=== PATIENT | male | born 1990 | race Caucasian/White ===

== ENCOUNTER 2023-01-11 11:25 | Outpatient (AMB) | payer OTHER, SELFPAY ==
--- NOTE | 2023-01-11 11:27 | A.OFFPC_ITS ---
Vital Signs 01/11/23 11:30 Height 5 ft 9 in Weight 482 lb 9.47 oz BMI 71.3 BP 124/70 Blood Pressure Location Lt brachial Position Sitting Respiration 18 Pulse 82 Pulse Source Pulse Oximeter Pulse Oximetry (%) 97 Oxygen Delivery Method Room Air Intake Visit Reasons: New patient-Back pain Intake Note: Patient is a new patient here to establish care LBP and Arthritis both hip, HTN and borderline diabetes. Transferring care from [facility] in [place], [place]. Medical records have been requested today. Pt is doing PT at [facility]/[place]. Database Security Expert Required: No Accompanied by: Self / Same As Patient Allergies No Known Allergies [No Known Allergies*] Allergy (Verified 01/11/23 11:50) Medication List - Last Reconciled 01/11/23 by Gregory Burgos PA-C lisinopril-hydrochlorothiazide 10-12.5 mg 1 tab PO DAILY meloxicam 15 mg PO DAILY Tobacco use date assessed: 01/11/23 Dental Screening Dental Screen Date: 01/11/23 Did you have a dental visit in the last 12 months?: Yes Did you have a dental problem in the last 6 months where you did not have access to dental care?: No Was dental information given to patient?: Patient has dentist HPI New patient-Back pain HPI Details Patient is a 32 year male here today for a new patient visit.. Previous PCP was in [facility]. He has a past medical history significant for morbid obesity, hypertension, BRENDON, bilateral hip osteoarthritis and chronic low back pain. .. Hypertension: Continues with lisinopril hydrochlorothiazide which has been able to manage his blood pressure quite well. He does report having history of obstructive sleep apnea though does not use a CPAP machine at night. He is interested in weight management reducing his weight to try to control his obstructive sleep apnea. Lumbar spine pain: Has had chronic lower lumbar spine pain to which he was dealing with with his previous PCP. Now on short-term disability from work as he is not able to go up and down ladders which requirement for his job.. Now going to [facility] for PT for his back which has been improving his back pain slowly. He does use NSAID on a p.r.n. basis for his pain. Has gotten x-rays of his hips and lower back and reports did fine arthritis in his hips. He continues to have some issues with mobility (going up and down stairs and getting into his truck) which causes some lower lumbar spine pain. He is interested in getting an MRI to evaluate for disc herniation. .. Obesity: He does understand his BMI is over 70 any he is 480 lb. He reports he has gained a lot more weight over the last 2 years due to being inactive secondary to being sick with COVID and having pneumonia and having his lower lumbar spine issue. Has tried Ozempic though felt ill with medication. He is interested starting with [place] weight management to help lose weight. [facility] Surgical History Hx of tonsillectomy Family History Mother No problems noted. Father Hypertension Diabetes mellitus Social History Housing: House Patient Tobacco Use Status: Never used Tobacco e-Cigarette/Vaping Use: Never Used service: No Current occupational status: employed and disabled Cognitive needs: No Hearing needs: No Vision needs: No Questionnaire PHQ-9 Over the last 2 weeks, how often have you been bothered by any of the following problems? 1. Little interest or pleasure in doing things: not at all 2. Feeling down, depressed, or hopeless: not at all 3. Trouble falling or staying asleep, or sleeping too much: not at all 4. Feeling tired or having little energy: not at all 5. Poor appetite or overeating: not at all 6. Feeling bad about yourself - or that you are a failure or have let yourself or your family down: not at all 7. Trouble concentrating on things, such as reading the newspaper or watching television: not at all 8. Moving or speaking so slowly that other people could have noticed. Or the opposite - being so fidgety or restless that you have been moving around a lot more than usual: not at all 9. Thoughts that you would be better off or of hurting yourself in some way: not at all Total score: 0 Depression Screening Interpretation: Negative Depression Screening Done: Yes 27202 - PHQ-9 Billing: Yes Source: Developed by Drs. Burt LPolly Hawkins Kurt Kroenke and colleagues, with an educational sharda from [employer]. Thrive Questionnaire Date Thrive assessed: 01/11/23 I am a: Patient What is your living situation today?: I have a steady place to live Within the past 12 months, did the food you bought not last and you didn't have the money to get more?: Never true Within the past 12 months, did you worry whether your food would run out before you got money to buy more?: Never true Do you have trouble paying for medicines?: No Do you have trouble getting transportation to medical appointments?: No Do you have trouble paying your heating and electricity bill?: No Do you have trouble taking care of your child, family member or friend?: No Do you have trouble with day-to-day activities such as bathing, preparing meals, shopping, managing finances, etc.?: No Are you currently unemployed and looking for a job?: No Are you interested in more education?: No Please select the resources that you would like help with: None Currently or been in a relationship where the following occur: no concerns reported AUDIT C Alcohol Use Questionnaire (AUDIT-C) 1. How often do you have a drink containing alcohol?: Monthly or less Total Score: 1 JAMIE-7 AMB Questionnaire JAMIE-7 Date JAMIE - 7 assessed: 01/11/23 Feeling nervous, anxious, or on edge: 0 = Not at all Not being able to stop or control worryin = Not at all Worrying too much about different things: 0 = Not at all Trouble relaxin = Not at all Being so restless that it is hard to sit still: 0 = Not at all Becoming easily annoyed or irritable: 0 = Not at all Feeling afraid as if something awful might happen: 0 = Not at all Total JAMIE-7 score (0-4 normal; 5-9 mild; 10-14 moderate; 15-21 severe): 0 Source: Developed by Drs. Burt Middleton, Johnathan Bagley and colleagues, with an educational sharda from [employer]. JAMIE-7 Assessment Billing JAMIE-7 Assessment Tool: JAMIE-7 Assessment 62797 Review of Systems Const Denies headache(s) Eyes Denies loss of vision ENT Denies vertigo, Denies dizziness, Denies headache(s) and Denies sore throat Card Denies chest pain, Denies leg edema and Denies lightheadedness Resp Denies cough, Denies hemoptysis and Denies wheezing GI Denies abdominal pain, Denies melena, Denies constipation, Denies diarrhea and Denies vomiting Denies dysuria, Denies urinary frequency and Denies urinary urgency Musc Denies arthralgias, Denies joint swelling, Denies numbness and Denies tingling Neuro Denies Abnormal speech present, Denies behavioral changes, Denies vertigo, Denies dizziness, Denies headache(s), Denies loss of vision, Denies memory loss, Denies numbness and Denies tingling Psych Denies anxiety, Denies behavioral changes, Denies depression, Denies memory loss and Denies panic attacks Jae/Lymph Denies easy bleeding and Denies easy bruising Aller/Immun Denies wheezing Physical exam (Primary Care) Vital Signs: Last Vital Signs Pulse 82 01/11/23 11:30 Resp 18 01/11/23 11:30 BP 124/70 01/11/23 11:30 Pulse Ox 97 01/11/23 11:30 Oxygen Delivery Method Room Air 01/11/23 11:30 BMI result Body Mass Index 71.3 BMI Assessment/Plan discussion: High Tobacco/Smoking Status: Tobacco use Status Tobacco use date assessed 01/11/23 01/11/23 11:41 Patient Tobacco Use Status Never used Tobacco 01/11/23 11:41 e-Cigarette/Vaping Use Never Used 01/11/23 11:41 PHQ-9: PHQ-9 Score PHQ-9: Total score 0 01/11/23 11:55 Depression Screening Interpretation: Negative Thrive Assessment: Date of Thrive Assessment Date Thrive assessed 01/11/23 01/11/23 11:41 Currently or been in a relationship where the following occur: no concerns reported Const Other: Morbidly obese General: healthy appearing, no acute distress, alert and awake Nutritional Appearance: well nourished Orientation/consciousness: oriented to person, oriented to place and oriented to time HENMT Ears: TM's normal bilaterally General nose exam: Normal nasal mucous membranes and turbinates present Eyes Conjunctivae: conjunctivae normal Sclerae: sclerae normal Pupils: Equal, round and reactive pupils present Neck Neck: Yes no lymphadenopathy and Yes no JVD Thyroid: Thyroid normal Carotids: no bruits Resp Effort & Inspection: normal respiratory effort and not tachypneic Auscultation: no crackles, no rales, no rhonchi and no wheezes Cardio Rate: regular rate Rhythm: regular rhythm Heart sounds: no murmurs and normal S1 and S2 GI Palpation (GI): Soft to palpation, nontender, no hepatomegaly and no sp lenomegaly Auscultation: normal bowel sounds Skin General skin exam: no rashes or lesions noted and dry skin Neuro General: oriented to person, oriented to place and oriented to time Cranial nerves: Yes Equal, round and reactive pupils present Speech: No Abnormal speech present Gait exam (Neuro): Normal gait present Motor exam (neuro): no tremor noted Extrem Right upper extremity: full ROM Left upper extremity: full ROM Right lower extremity: full ROM; no edema Left lower extremity: full ROM; no edema Psych Mental Status: mental status grossly normal Speech and movement: Normal speech and movement present Affect: normal affect Attitude: cooperative Thought process: Normal thought process present Assessment and Plan Assessment & Plan (1) Obesity: Code(s): E66.9 - Obesity, unspecified Qualifiers: Body mass index: BMI 70 or greater Obesity classification: adult class 3 (BMI >= 40) Obesity type: due to excess calories Serious obesity comorbidity presence: with serious comorbidity Qualified Code(s): E66.01 - Morbid (severe) obesity due to excess calories; Z68.45 - Body mass index [BMI] 70 or greater, adult Plan: Patient does understand his BMI is over 70 would like to start with the [place] weight management program. He will work on lifestyle modifications on reducing his poor eating habits and trying to increase his physical activity as much as he can tolerate. (2) HTN (hypertension): Code(s): I10 - Essential (primary) hypertension Qualifiers: Hypertension type: primary hypertension Qualified Code(s): I10 - Essential (primary) hypertension Plan: Patient's blood pressure acceptable today in office. Will continue his current dose of lisinopril with goal blood pressure to be below 140/90 (3) Lumbar spine pain: Code(s): M54.50 - Low back pain, unspecified Plan: Continues with lower lumbar spine pain that has slowly gotten better with physical therapy. He has been dealing with lower lumbar spine pain over the last 8 months. He still has lower lumbar spine pain when going up or down stairs or trying to get in and out of a truck. He is currently on short-term disability from work anticipates returning as long his his lumbar spine and hips get better. Due to his continued lumbar spine pain he is interested in getting an MRI to evaluate for disc herniation (4) Osteoarthritis, hip, bilateral: Code(s): M16.0 - Bilateral primary osteoarthritis of hip Qualifiers: Osteoarthritis type: primary Qualified Code(s): M16.0 - Bilateral primary osteoarthritis of hip Plan: Was found to have bilateral hip osteoarthritis. He has been working with physical therapy on this as well. (5) BRENDON (obstructive sleep apnea): Code(s): G47.33 - Obstructive sleep apnea (adult) (pediatric) Plan: He reports he does have obstructive sleep apnea though is not use a CPAP machine. He is somewhat willing to be re-evaluated with a sleep apnea test in near future. He would like to work on weight reduction (6) Lumbar radiculopathy: Code(s): M54.16 - Radiculopathy, lumbar region (7) Impaired glucose metabolism: Code(s): R73.09 - Other abnormal glucose Plan: He does report having history of borderline diabetes due to his weight. Will check an A1c and fasting blood sugar to assure within acceptable range. Orders: Orders Complete Blood Count no Diff Today I10 - Essential (primary) hypertension Microalbumin, Random (w Creat) Today I10 - Essential (primary) hypertension Comprehensive [place]. Panel Fast Today I10 - Essential (primary) hypertension MR lumbar spine wo con Today M54.16 - Radiculopathy, lumbar region, M54.50 - Low back pain, unspecified Hemoglobin A1c Today R73.09 - Other abnormal glucose Referrals Bariatric Surgery Referral E66.01 - Morbid (severe) obesity due to excess calories, Z68.45 - Body mass index [BMI] 70 or greater, adult Coding Level of Care Code New Pt Level 4 (02833) Diagnoses Class 3 severe obesity due to excess calories with serious comorbidity and body mass index (BMI) greater than or equal to 70 in adult E66.01; Z68.45 Body mass index: BMI 70 or greater Obesity classification: adult class 3 (BMI >= 40) Obesity type: due to excess calories Serious obesity comorbidity presence: with serious comorbidity Primary hypertension I10 Hypertension type: primary hypertension Lumbar spine pain M54.50 Primary osteoarthritis of both hips M16.0 Osteoarthritis type: primary BRENDON (obstructive sleep apnea) G47.33 Lumbar radiculopathy M54.16 Impaired glucose metabolism R73.09 Additional Codes JAMIE-7 Assessment Billing - JAMIE-7 Assessment Tool: JAMIE-7 Assessment [id number] ([id number])
[2023-01-11 11:30] VITALS: BP 124/70; PULSE 82; RESP 18; O2SAT 97; BMI 71.3
== END 2023-01-11 12:22 | disposition home or self-care (01) ==
PROVIDERS: PCP Hospitalist; Visit Provider Physician Assistant
DX: E66.01 Morbid (severe) obesity due to excess calories (principal); Z68.45 Body mass index [BMI] 70 or greater, adult; I10 Essential (primary) hypertension; M54.50 Low back pain, unspecified; M16.0 Bilateral primary osteoarthritis of hip; G47.33 Obstructive sleep apnea (adult) (pediatric); M54.16 Radiculopathy, lumbar region; R73.09 Other abnormal glucose
CPT/HCPCS: 99204

== ENCOUNTER 2023-01-26 09:10 | Outpatient (AMB) | payer OTHER, SELFPAY ==
[2023-01-26 09:23] VITALS: BP 126/86; O2SAT 97; BMI 71.8
--- NOTE | 2023-01-26 09:23 | A.OFFPC_ITS ---
Vital Signs 01/26/23 09:23 Height 5 ft 9 in Weight 486 lb 5.436 oz BMI 71.8 BP 126/86 Blood Pressure Location Lt brachial Position Sitting Pulse Oximetry (%) 97 Oxygen Delivery Method Room Air Intake Visit Reasons: 2 week f/u Bee Raiser Required: No Accompanied by: Self / Same As Patient Allergies No Known Allergies [No Known Allergies*] Allergy (Verified 01/26/23 09:50) Medication List - Last Reconciled 01/26/23 by Gregory Burgos PA-C lisinopril-hydrochlorothiazide 10-12.5 mg 1 tab PO DAILY Tobacco use date assessed: 01/11/23 Dental Screening Dental Screen Date: 01/26/23 Did you have a dental visit in the last 12 months?: Yes Did you have a dental problem in the last 6 months where you did not have access to dental care?: No Was dental information given to patient?: Patient has dentist HPI 2 week f/u HPI Details Patient is a 32 year male here today for a follow-up visit He has a past medical history significant for morbid obesity, hypertension, BRENDON, bilateral hip osteoarthritis and chronic low back pain. Concerned--> ports over last several weeks having intermittent episodes of her left upper chest discomfort that only last a few minutes. He reports he is able to tandem massage is away from when it does happen for he denies any shortness of breath or cough. .. Hypertension: Continues with lisinopril hydrochlorothiazide which has been able to manage his blood pressure quite well. He does report having history of obstructive sleep apnea though does not use a CPAP machine at night. He is interested in weight management reducing his weight to try to control his obstructive sleep apnea. Lumbar spine pain: Has had chronic lower lumbar spine pain to which he was dealing with with his previous PCP. Now on short-term disability from work as he is not able to go up and down ladders which requirement for his job.. Now going to [facility] for PT for his back which has been improving his back pain slowly. He does use NSAID on a p.r.n. basis for his pain. Has gotten x-rays of his hips and lower back and reports did fine arthritis in his hips. He continues to have some issues with mobility (going up and down stairs and getting into his truck) which causes some lower lumbar spine pain. He is interested in getting an MRI to evaluate for disc herniation. .. Obesity: He does understand his BMI is over 70 any he is 486 lb. He reports he has gained a lot more weight over the last 2 years due to being inactive secondary to being sick with COVID and having pneumonia and having his lower lumbar spine issue. Has tried Ozempic though felt ill with medication. He is interested starting with [place] weight management to help lose weight. [facility] Surgical History Hx of tonsillectomy Family History Mother No problems noted. Father Hypertension Diabetes mellitus Social History Housing: House Patient Tobacco Use Status: Never used Tobacco e-Cigarette/Vaping Use: Never Used service: No Current occupational status: employed and disabled Cognitive needs: No Hearing needs: No Vision needs: No Questionnaire Thrive Questionnaire Date Thrive assessed: 01/11/23 JAMIE-7 AMB Questionnaire JAMIE-7 Date JAMIE - 7 assessed: 01/11/23 Source: Developed by Drs. Burt Middleton, Polly Ward, Johnathan Rivera and colleagues, with an educational sharda from [employer]. Review of Systems Const Denies headache(s) Eyes Denies loss of vision ENT Denies vertigo, Denies dizziness, Denies headache(s) and Denies sore throat Card Denies chest pain, Denies leg edema and Denies lightheadedness Resp Denies cough, Denies hemoptysis and Denies wheezing GI Denies abdominal pain, Denies melena, Denies constipation, Denies diarrhea and Denies vomiting Denies dysuria, Denies urinary frequency and Denies urinary urgency Musc Denies arthralgias, Denies joint swelling, Denies numbness and Denies tingling Neuro Denies Abnormal speech present, Denies behavioral changes, Denies vertigo, Denies dizziness, Denies headache(s), Denies loss of vision, Denies memory loss, Denies numbness and Denies tingling Psych Denies anxiety, Denies behavioral changes, Denies depression, Denies memory loss and Denies panic attacks Jae/Lymph Denies easy bleeding and Denies easy bruising Aller/Immun Denies wheezing Physical exam (Primary Care) Vital Signs: Last Vital Signs BP 126/86 01/26/23 09:23 Pulse Ox 97 01/26/23 09:23 Oxygen Delivery Method Room Air 01/26/23 09:23 BMI result Body Mass Index 71.8 BMI Assessment/Plan discussion: High Tobacco/Smoking Status: Tobacco use Status Tobacco use date assessed 01/11/23 01/26/23 09:24 Patient Tobacco Use Status Never used Tobacco 01/26/23 09:24 e-Cigarette/Vaping Use Never Used 01/26/23 09:24 Thrive Assessment: Date of Thrive Assessment Date Thrive assessed 01/11/23 01/26/23 09:24 Const Other: Morbidly obese General: healthy appearing, no acute distress, alert and awake Nutritional Appearance: well nourished Orientation/consciousness: oriented to person, oriented to place and oriented to time HENMT Ears: TM's normal bilaterally General nose exam: Normal nasal mucous membranes and turbinates present Eyes Conjunctivae: conjunctivae normal Sclerae: sclerae normal Pupils: Equal, round and reactive pupils present Neck Neck: Yes no lymphadenopathy and Yes no JVD Thyroid: Thyroid normal Carotids: no bruits Resp Effort & Inspection: normal respiratory effort and not tachypneic Auscultation: no crackles, no rales, no rhonchi and no wheezes Cardio Rate: regular rate Rhythm: regular rhythm Heart sounds: no murmurs and normal S1 and S2 GI Palpation (GI): Soft to palpation, nontender, no hepatomegaly and no splenomegaly Auscultation: normal bowel sounds Skin General skin exam: no rashes or lesions noted and dry skin Neuro General: oriented to person, oriented to place and oriented to time Cranial nerves: Yes Equal, round and reactive pupils present Speech: No Abnormal speech present Gait exam (Neuro): Normal gait present Motor exam (neuro): no tremor noted Extrem Right upper extremity: full ROM Left upper extremity: full ROM Right lower extremity: full ROM; no edema Left lower extremity: full ROM; no edema Psych Mental Status: mental status grossly normal Speech and movement: Normal speech and movement present Affect: normal affect Attitude: cooperative Thought process: Normal thought process present Assessment and Plan Assessment & Plan (1) Obesity: Code(s): E66.9 - Obesity, unspecified Qualifiers: Body mass index: BMI 70 or greater Obesity classification: adult class 3 (BMI >= 40) Obesity type: due to excess calories Serious obesity comorbidity presence: with serious comorbidity Qualified Code(s): E66.01 - Morbid (severe) obesity due to excess calories; Z68.45 - Body mass index [BMI] 70 or greater, adult Plan: Patient does understand his BMI is over 70 would like to start with the [place] weight management program. He will work on lifestyle modifications on reducing his poor eating habits and trying to increase his physical activity as much as he can tolerate. (2) HTN (hypertension): Code(s): I10 - Essential (primary) hypertension Qualifiers: Hypertension type: primary hypertension Qualified Code(s): I10 - Essential (primary) hypertension Plan: Patient's blood pressure acceptable today in office. Will continue his current dose of lisinopril with goal blood pressure to be below 140/90 (3) Lumbar spine pain: Code(s): M54.50 - Low back pain, unspecified Plan: Continues with lower lumbar spine pain that has slowly gotten better with physical therapy. He has been dealing with lower lumbar spine pain over the last 8 months. He still has lower lumbar spine pain when going up or down stairs or trying to get in and out of a truck. He is currently on short-term disability from work anticipates returning as long his his lumbar spine and hips get better. Has an upcoming lumbar spine MRI (4) Osteoarthritis, hip, bilateral: Code(s): M16.0 - Bilateral primary osteoarthritis of hip Qualifiers: Osteoarthritis type: primary Qualified Code(s): M16.0 - Bilateral primary osteoarthritis of hip Plan: Was found to have bilateral hip osteoarthritis. He has been working with physical therapy on this as well. (5) BRENDON (obstructive sleep apnea): Code(s): G47.33 - Obstructive sleep apnea (adult) (pediatric) Plan: He reports he does have obstructive sleep apnea though is not use a CPAP machine. He is somewhat willing to be re-evaluated with a sleep apnea test in near future. He would like to work on weight reduction (6) Chest pain: Code(s): R07.9 - Chest pain, unspecified Qualifiers: Chest pain type: intercostal pain Qualified Code(s): R07.82 - Intercostal pain Plan: Reports intermittent episodes of left upper chest discomfort. Somewhat atypical for cardiac etiology though will check a EKG. Orders: Orders ECG 12 lead EKG 01/26/23 R07.82 - Intercostal pain XR chest 2V 01/26/23 R07.82 - Intercostal pain Troponin-I High Sensitivity 01/26/23 R07.82 - Intercostal pain Erythrocyte Sedimentation Rate 01/26/23 R07.82 - Intercostal pain Medications: Changed From lisinopril-hydrochlorothiazide 10-12.5 mg 1 tab PO DAILY I10 - Essential (primary) hypertension To lisinopril-hydrochlorothiazide 10-12.5 mg 1 tab PO DAILY 90 days 90 tabs 1RF I10 - Essential (primary) hypertension Coding Level of Care Code Est Pt Level 4 (39825) Diagnoses Class 3 severe obesity due to excess calories with serious comorbidity and body mass index (BMI) greater than or equal to 70 in adult E66.01; Z68.45 Body mass index: BMI 70 or greater Obesity classification: adult class 3 (BMI >= 40) Obesity type: due to excess calories Serious obesity comorbidity presence: with serious comorbidity Primary hypertension I10 Hypertension type: primary hypertension Lumbar spine pain M54.50 Primary osteoarthritis of both hips M16.0 Osteoarthritis type: primary BRENDON (obstructive sleep apnea) G47.33 Intercostal pain R07.82 Chest pain type: intercostal pain
== END 2023-01-26 10:19 | disposition home or self-care (01) ==
PROVIDERS: PCP Physician Assistant; Visit Provider Physician Assistant
DX: E66.01 Morbid (severe) obesity due to excess calories (principal); Z68.45 Body mass index [BMI] 70 or greater, adult; I10 Essential (primary) hypertension; M54.50 Low back pain, unspecified; M16.0 Bilateral primary osteoarthritis of hip; G47.33 Obstructive sleep apnea (adult) (pediatric); R07.82 Intercostal pain
CPT/HCPCS: 99214

== ENCOUNTER 2024-05-15 12:46 | Outpatient (AMB) | payer OTHER, SELFPAY ==
[2024-05-15 13:19] VITALS: BP 132/70; PULSE 78; TEMP 36.4; O2SAT 97; BMI 69.3
--- NOTE | 2024-05-15 13:19 | MHC.PC.OV ---
Vital Signs 05/15/24 13:19 Height 5 ft 9 in Weight 469 lb 5.826 oz BMI 69.3 BP 132/70 Blood Pressure Location Lt brachial Position Sitting Pulse 78 Pulse Source Pulse Oximeter Temp 97.5 F Temp Source Temporal Artery Scan Pulse Oximetry (%) 97 Oxygen Delivery Method [facility] Content Assistant Required: No Accompanied by: Self / Same As Patient Allergies No Known Allergies [No Known Allergies*] Allergy (Verified 05/15/24 13:32) Medication List - Last Reconciled 05/15/24 by Gregory Burgos PA-C lisinopril-hydrochlorothiazide 10-12.5 mg 1 tab PO DAILY 90 days Tobacco use date assessed: 05/15/24 Dental Screening Dental Screen Date: 05/15/24 Did you have a dental visit in the last 12 months?: No Did you have a dental problem in the last 6 months where you did not have access to dental care?: No Was dental information given to patient?: Patient has dentist HPI EDF [facility] 05/06 Chest pain HPI Details Patient is a 33-year-old male here today for an ER follow-up visit. Patient has a past medical history significant for obesity, hypertension, . Was seen at the [facility] ER for chest pain, EKG and troponins. Chest x-ray was normal. Attributed this chest pain to stress and anxiety. Currently patient's blood pressure acceptable. He continues with lisinopril hydrochlorothiazide with good effect on his blood pressure. He is very motivated to lose weight. Has lost 20 lb since his last office visit. He has been eating cleaner carpet and upholstery and has been a bit more active. He is not interested in weight loss medication or seeing a bariatric surgeon at this time. His goal is to get off of blood pressure medication. Obstructive sleep apnea: He does have obstructive sleep apnea and was told he did in his CPAP machine though he has been using a recliner chair that he sleeps in which has helped him sleep much better. Concern--> he also reports feeling that he has been since young child dealing with ADD disorder. He often has attention and focus issues that disrupt him from sometimes getting a task done. He is interested in getting evaluation for an ED. When asked not interested in starting any medication for ADD [facility] Surgical History Hx of tonsillectomy Family History Mother No problems noted. Father Hypertension Diabetes mellitus Social History Housing: House Patient Tobacco Use Status: Never used Tobacco e-Cigarette/Vaping Use: Never Used service: No Current occupational status: employed and disabled Cognitive needs: No Hearing needs: No Vision needs: No Questionnaire PHQ-9 Over the last 2 weeks, how often have you been bothered by any of the following problems? 1. Little interest or pleasure in doing things: not at all 2. Feeling down, depressed, or hopeless: not at all 3. Trouble falling or staying asleep, or sleeping too much: not at all 4. Feeling tired or having little energy: not at all 5. Poor appetite or overeating: not at all 6. Feeling bad about yourself - or that you are a failure or have let yourself or your family down: not at all 7. Trouble concentrating on things, such as reading the newspaper or watching television: not at all 8. Moving or speaking so slowly that other people could have noticed. Or the opposite - being so fidgety or restless that you have been moving around a lot more than usual: not at all 9. Thoughts that you would be better off or of hurting yourself in some way: not at all Total score: 0 Depression Screening Interpretation: Negative Depression Screening Done: Yes 45149 - PHQ-9 Billing: Yes Source: Developed by Drs. Burt Middleton, Polly Ward, Johnathan Rivera and colleagues, with an educational sharda from [employer]. Thrive Questionnaire Date Thrive assessed: 05/15/24 I am a: Patient What is your living situation today?: I have a steady place to live Within the past 12 months, did the food you bought not last and you didn't have the money to get more?: Never true Within the past 12 months, did you worry whether your food would run out before you got money to buy more?: Never true Do you have trouble paying for medicines?: No Do you have trouble getting transportation to medical appointments?: No Do you have trouble paying your heating and electricity bill?: No Do you have trouble taking care of your child, family member or friend?: No Do you have trouble with day-to-day activities such as bathing, preparing meals, shopping, managing finances, etc.?: No Are you currently unemployed and looking for a job?: No Are you interested in more education?: No Please select the resources that you would like help with: None Currently or been in a relationship where the following occur: No concerns reported THRIVE Score: 0 AUDIT C Alcohol Use Questionnaire (AUDIT-C) 1. How often do you have a drink containing alcohol?: Never 3. How often do you have six or more drinks on one occasion?: Never Total Score: 0 JAMIE-7 AMB Questionnaire JAMIE-7 Date JAMIE - 7 assessed: 05/15/24 Feeling nervous, anxious, or on edge: 0 = Not at all Not being able to stop or control worryin = Not at all Worrying too much about different things: 0 = Not at all Trouble relaxin = Not at all Being so restless that it is hard to sit still: 0 = Not at all Becoming easily annoyed or irritable: 0 = Not at all Feeling afraid as if something awful might happen: 0 = Not at all Total JAMIE-7 score (0-4 normal; 5-9 mild; 10-14 moderate; 15-21 severe): 0 Source: Developed by Drs. Burt Middleton, Polly Ward, Johnathan Rivera and colleagues, with an educational sharda from [employer]. JAMIE-7 Assessment Billing JAMIE-7 Assessment Tool: JAMIE-7 Assessment [id number] Review of Systems Const Denies headache(s) Eyes Denies loss of vision ENT Denies vertigo, Denies dizziness, Denies headache(s) and Denies sore throat Card Denies chest pain, Denies leg edema and Denies lightheadedness Resp Denies cough, Denies hemoptysis and Denies wheezing GI Denies abdominal pain, Denies melena, Denies constipation, Denies diarrhea and Denies vomiting Denies dysuria, Denies urinary frequency and Denies urinary urgency Musc Denies arthralgias, Denies joint swelling, Denies numbness and Denies tingling Neuro Denies Abnormal speech present, Denies behavioral changes, Denies vertigo, Denies dizziness, Denies headache(s), Denies loss of vision, Denies memory loss, Denies numbness and Denies tingling Psych Denies anxiety, Denies behavioral changes, Denies depression, Denies memory loss and Denies panic attacks Jae/Lymph Denies easy bleeding and Denies easy bruising Aller/Immun Denies wheezing Physical exam (Primary Care) Vital Signs: Last Vital Signs Temp 97.5 F 05/15/24 13:19 Pulse 78 05/15/24 13:19 BP 132/70 05/15/24 13:19 Pulse Ox 97 05/15/24 13:19 Oxygen Delivery Method Room Air 05/15/24 13:19 BMI result Body Mass Index 69.3 Tobacco/Smoking Status: Tobacco use Status Tobacco use date assessed 05/15/24 05/15/24 13:25 Patient Tobacco Use Status Never used Tobacco 05/15/24 13:24 e-Cigarette/Vaping Use Never Used 05/15/24 13:24 PHQ-9: PHQ-9 Score PHQ-9: Total score 0 05/15/24 13:24 Depression Screening Interpretation: Negative Thrive Assessment: Date of Thrive Assessment Date Thrive assessed 05/15/24 05/15/24 13:24 Currently or been in a relationship where the following occur: No concerns reported Const General: healthy appearing, no acute distress, alert and awake Nutritional Appearance: well nourished Orientation/consciousness: oriented to person, oriented to place and oriented to time HENMT Ears: TM's normal bilaterally General nose exam: Normal nasal mucous membranes and turbinates present Eyes Conjunctivae: conjunctivae normal Sclerae: sclerae normal Pupils: Equal, round and reactive pupils present Neck Neck: Yes no lymphadenopathy and Yes no JVD Thyroid: Thyroid normal Carotids: no bruits Resp Effort & Inspection: normal respiratory effort and not tachypneic Auscultation: no crackles, no rales, no rhonchi and no wheezes Cardio Rate: regular rate Rhythm: regular rhythm Heart sounds: no murmurs and normal S1 and S2 GI Palpation (GI): Soft to palpation, nontender, no hepatomegaly and no splenomegaly Auscultation: normal bowel sounds Skin General skin exam: no rashes or lesions noted and dry skin Neuro General: oriented to person, oriented to place and oriented to time Cranial nerves: Yes Equal, round and reactive pupils present Speech: No Abnormal speech present Gait exam (Neuro): Normal gait present Motor exam (neuro): no tremor noted Extrem Right upper extremity: full ROM Left upper extremity: full ROM Right lower extremity: full ROM; no edema Left lower extremity: full ROM; no edema Psych Mental Status: mental status grossly normal Speech and movement: Normal speech and movement present Affect: normal affect Attitude: cooperative Thought process: Normal thought process present Coding Level of Care Code Est Pt Level 4 (82486) Diagnoses Intercostal pain R07.82 Chest pain type: intercostal pain Primary hypertension I10 Hypertension type: primary hypertension Leukocytosis, unspecified type D72.829 Leukocytosis type: unspecified Attention or concentration deficit R41.840 Attention deficit type: attention or concentration deficit Additional Codes JAMIE-7 Assessment Billing - JAMIE-7 Assessment Tool: JAMIE-7 Assessment 92540 ([id number]) PHQ-9 - 23563 - PHQ-9 Billing: Yes ([id number]) Assessment & Plan Assessment & Plan (1) Chest pain: Code(s): R07.9 - Chest pain, unspecified Category: Medical Qualifiers: Chest pain type: intercostal pain Qualified Code(s): R07.82 - Intercostal pain Plan: Unclear etiology to patient's chest pain, likely stress and anxiety response. His chest pains have resolved. We discuss possibly doing Cornelio protocol stress test though will hold off on this for now and work extensively on lifestyle and weight reduction. He will continue on lisinopril hydrochlorothiazide for his blood pressure control. (2) HTN (hypertension): Code(s): I10 - Essential (primary) hypertension Category: Medical Qualifiers: Hypertension type: primary hypertension Qualified Code(s): I10 - Essential (primary) hypertension Plan: Patient's blood pressure acceptable today in office. Will continue current antihypertensive medication with goal blood pressure to remain below 140/90. Will give him paper script to do home blood pressure monitoring. He is interested in getting off blood pressure medication next few years as he is adamant about losing weight. (3) Leukocytosis: Code(s): D72.829 - Elevated white blood cell count, unspecified Category: Medical Qualifiers: Leukocytosis type: unspecified Qualified Code(s): D72.829 - Elevated white blood cell count, unspecified Plan: Have noted leukocytosis on most recent labs. Likely related to his weight in stress on his body. Will consider Hematology evaluation (4) ADD (attention deficit disorder): Code(s): F98.8 - Other specified behavioral and emotional disorders with onset usually occurring in childhood and adolescence Category: Medical Qualifiers: Attention deficit type: attention or concentration deficit Qualified Code(s): R41.840 - Attention and concentration deficit Plan: Patient having issues with his attention and focus on single task. He is interested in getting evaluation for ADD. Not interested in medication Orders: Orders Hemoglobin A1c Today R73.09 - Other abnormal glucose Comprehensive [place]. Panel Fast Today R73.09 - Other abnormal glucose Complete Blood Count no Diff Today D72.829 - Elevated white blood cell count, unspecified Referrals Psychiatry Outpatient Consultation Service R41.840 - Attention and concentration deficit Medications: New blood pressure monitor test blood pressure daily 1 ea 0RF I10 - Essential (primary) hypertension magnesium oxide 500 mg PO DAILY 90 days 90 caps 1RF I10 - Essential (primary) hypertension Refilled lisinopril-hydrochlorothiazide 10-12.5 mg 1 tab PO DAILY 90 days 90 tabs 1RF I10 - Essential (primary) hypertension
== END 2024-05-15 14:07 | disposition home or self-care (01) ==
PROVIDERS: PCP Physician Assistant; Visit Provider Physician Assistant
DX: R07.82 Intercostal pain (principal); I10 Essential (primary) hypertension; D72.829 Elevated white blood cell count, unspecified; R41.840 Attention and concentration deficit

== ENCOUNTER → 2024-05-15 12:46 | Outpatient (BNVA) | payer SELFPAY | PROVIDERS: PCP Physician Assistant; Visit Provider Physician Assistant | DX: R07.82 Intercostal pain (principal); I10 Essential (primary) hypertension; D72.829 Elevated white blood cell count, unspecified; R41.840 Attention and concentration deficit | CPT/HCPCS: 96127 ==

== ENCOUNTER 2024-06-02 09:09 | Outpatient (REF) | payer OTHER, SELFPAY ==
[2024-06-02 14:42] LABS: Influenza A PCR NEGATIVE (Negative); Influenza B PCR NEGATIVE (Negative); Resp Syncy Virus RNA Qual PCR NEGATIVE (Negative); SARS COV2 PCR INHOUSE POSITIVE (Negative)
== END 2024-06-02 09:10 | disposition home or self-care (01) ==
LOC: HO.LAB 09:09
PROVIDERS: Family Medicine; PCP Physician Assistant
DX: B34.9 Viral infection, unspecified (principal); R50.9 Fever, unspecified; Z20.822 Contact with and (suspected) exposure to COVID-19
CPT/HCPCS: 0241U; 87880

== ENCOUNTER 2024-06-02 09:09 | Outpatient (AMB) | payer OTHER, SELFPAY ==
[2024-06-02 09:20] VITALS: BP 124/80; PULSE 81; RESP 18; TEMP 36.5; O2SAT 98; BMI 68.7
--- NOTE | 2024-06-02 09:20 | AM.OFFWIN_ITS ---
Intake Vital Signs 06/02/24 09:20 Height 5 ft 9 in Weight 465 lb BMI 68.7 BP 124/80 Blood Pressure Location Lt radial Position Sitting Respiration 18 Pulse 81 Pulse Source Pulse Oximeter Temp 97.7 F Temp Source Oral Pulse Oximetry (%) 98 Oxygen Delivery Method Room Air Intake Visit Reasons: EP fever, sore throat Intake Note: Pt is here today c/o fever and sorethroat x4 days Patient Tobacco Use Status: Never used Tobacco Allergies No Known Allergies [No Known Allergies*] Allergy (Verified 06/02/24 09:26) HPI EP fever, sore throat 2 HPI Details Patient has had about 4 days of sore throat and fevers. Now getting significant nasal congestion and mild cough. No known sick contacts mild fatigue PFSH Surgical History Hx of tonsillectomy Family History Mother No problems noted. Father Hypertension Diabetes mellitus Social History Housing: House Patient Tobacco Use Status: Never used Tobacco e-Cigarette/Vaping Use: Never Used service: No Current occupational status: employed and disabled Cognitive needs: No Hearing needs: No Vision needs: No Review of Systems Const Details: see HPI Physical Exam Vital Signs: Last Vital Signs Temp 97.7 F 06/02/24 09:20 Pulse 81 06/02/24 09:20 Resp 18 06/02/24 09:20 BP 124/80 06/02/24 09:20 Pulse Ox 98 06/02/24 09:20 Oxygen Delivery Method Room Air 06/02/24 09:20 BMI result Body Mass Index 68.7 Const Other: appears mildly ill General: no acute distress and well developed Nutritional Appearance: well nourished Orientation/consciousness: patient oriented x3 HEENT Other: nasal congestion and facial flushing Head: Yes normocephalic and Yes atraumatic Eyes General: appearance normal, both eyes and all related structures Pupils: Equal, round and reactive pupils present EOM: EOMs intact bilaterally Resp Other: mildly coarse breath sounds throughout but no diminished breath sounds or other adventitious sounds Effort & Inspection: normal respiratory effort Auscultation: clear to auscultation bilaterally Cardio Rate: regular rate Rhythm: regular rhythm Heart sounds: S1 normal heart sound present, S2 normal heart sound present, no gallops, no murmurs and no rubs Neuro General: patient oriented x3 and gait normal Cranial nerves: Yes Equal, round and reactive pupils present Psych Affect: normal affect Results AMB Rapid Strep AMB Rapid Strep Negative Last Edit by Rosario Morrell CMA on 06/02/24 09:39 Results Reviewed Results Reviewed: Laboratory Last Values Strep Scn Rapid Clinic Negative 06/02/24 09:38 Assessment & Plan Assessment & Plan (1) Viral illness: Code(s): B34.9 - Viral infection, unspecified Plan: rapid strep negative likely viral illness. Nasal swab for COVID/ flu / RSV sent to the lab. Encouraged good hydration and plenty of rest. Patient works from home and does not need a work note. Call or return to office if worsening or not improving in a few days. Orders: Orders SARS-CoV2/FLU/RSV Today B34.9 - Viral infection, unspecified, Z20.822 - Contact with and (suspected) exposure to COVID-19 AMB Rapid Strep Screen Today Z13.9 - Encounter for screening, unspecified Coding Level of Care Code Est Pt Level 3 (56119) Diagnoses Viral illness B34.9
== END 2024-06-02 10:20 | disposition home or self-care (01) ==
PROVIDERS: PCP Physician Assistant; Visit Provider Family Medicine
DX: B34.9 Viral infection, unspecified (principal); Z13.9 Encounter for screening, unspecified

== ENCOUNTER 2024-06-26 09:40 | Outpatient (REF) | payer OTHER, SELFPAY ==
[2024-06-26 11:08] LABS: Hematocrit 41.7 % (42.0-52.0); Mean Corpuscular HGB Conc 33.6 g/dl (31.0-36.0); Mean Corpuscular Hemoglobin 28.5 pg (27.0-33.0); Mean Corpuscular Volume 84.8 fL (80.0-98.0); Mean Platelet Volume 9.3 fL (9.4-12.4); Platelet Count 283 X10*3/uL (160-400); Red Blood Count 4.92 X10*6/uL (4.60-5.80); White Blood Count 13.4 X10*3/uL (4.8-10.8)
[2024-06-26 11:18] LABS: Alanine Aminotransferase 21 U/L (0-40); Albumin Level 3.6 g/dL (3.5-5.0); Alkaline Phosphatase 68 U/L (39-117); Anion Gap 11 (12-20); Aspartate Amino Transferase 19 U/L (5-37); Bilirubin Total 0.3 mg/dL (0.0-1.0); Blood Urea Nitrogen 9 mg/dL (9-16); Calcium 9.2 mg/dL (8.4-10.2); Carbon Dioxide 25 mmol/L (22-29); Chloride 106 mmol/L (96-108); Estimated Glomerular Filt Rate > 60; Glucose Fasting 113 mg/dL (60-99); Potassium 3.8 mmol/L (3.3-5.1); Sodium 138 mmol/L (135-145); Total Protein 7.5 g/dL (6.5-8.0)
[2024-06-26 11:20] LABS: Estimated Average Glucose 126 mg/dL; Hemoglobin A1C 158.1659 umol/L; Total Hemoglobin (HGBA1C) 3713.6547 umol/L
== END 2024-06-26 09:41 | disposition home or self-care (01) ==
LOC: HO.LAB 09:40
PROVIDERS: PCP Physician Assistant; Visit Provider Physician Assistant
DX: R73.09 Other abnormal glucose (principal); D72.829 Elevated white blood cell count, unspecified
CPT/HCPCS: 36415; 80053; 83036; 85027

== ENCOUNTER 2024-12-06 10:33 | Outpatient (REF) | payer OTHER, SELFPAY ==
[2024-12-06 11:19] LABS: Hematocrit 41.9 % (42.0-52.0); Hemoglobin 14.4 g/dl (14.0-18.0); Mean Corpuscular HGB Conc 34.4 g/dl (31.0-36.0); Mean Corpuscular Hemoglobin 28.6 pg (27.0-33.0); Mean Corpuscular Volume 83.1 fL (80.0-98.0); NRBC Abs Auto 0.000 X10*3/uL (0.0-0.012); NRBC Pct Auto 0.0 /100WBC (0.0-0.2); Platelet Count 283 X10*3/uL (160-400); Red Blood Count 5.04 X10*6/uL (4.60-5.80); White Blood Count 16.2 X10*3/uL (4.8-10.8)
[2024-12-06 11:35] LABS: Hemoglobin A1C 185.8444 umol/L; Total Hemoglobin (HGBA1C) 3624.7621 umol/L
[2024-12-06 12:01] LABS: NT Pro B Type Natriuretic Pept < 15.8 pg/mL (<300); Troponin-I High Sensitivity < 2.7 ng/L (<3.5-35.0)
[2024-12-06 12:02] LABS: Alanine Aminotransferase 28 U/L (0-40); Albumin Level 4.0 g/dL (3.5-5.0); Alkaline Phosphatase 69 U/L (39-117); Anion Gap 13 (12-20); Aspartate Amino Transferase 24 U/L (5-37); Blood Urea Nitrogen 12 mg/dL (9-16); Calcium 9.1 mg/dL (8.4-10.2); Carbon Dioxide 26 mmol/L (22-29); Chloride 103 mmol/L (96-108); Estimated Glomerular Filt Rate > 60; Potassium 3.8 mmol/L (3.3-5.1); Sodium 138 mmol/L (135-145); Total Protein 8.0 g/dL (6.5-8.0)
[2024-12-06 12:28] LABS: Microalbum/Creatinine Ratio Ur 427.4 ug/mg cr (<30)
== END 2024-12-06 10:34 | disposition home or self-care (01) ==
LOC: HO.LAB 10:33
PROVIDERS: PCP Physician Assistant; Visit Provider Physician Assistant
DX: R73.09 Other abnormal glucose (principal); G47.33 Obstructive sleep apnea (adult) (pediatric); I10 Essential (primary) hypertension; R07.82 Intercostal pain
CPT/HCPCS: 36415; 80053; 82043; 82570; 83036; 83880; 84484; 85027

== ENCOUNTER 2024-12-20 14:49 | Outpatient (AMB) | payer OTHER, SELFPAY ==
--- OUTSIDE RECORDS SUMMARY | 2024-12-20 14:52 | XMS_ITS | Clinical Summary ---
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 01/09/2021 Active Family History Medical History Relation Comments Heart disease Father Heart disease Mother Relation Status Comments Father Mother Social History Tobacco Use Types Packs/Day Years Used Date Smoking Tobacco: Never Smokeless Tobacco: Never Alcohol Use Standard Drinks/Week Comments Never 0 (1 standard drink = 0.6 oz pur e alcohol) Education Answer Date Recorded Are you interested in more education? Not on shay e 07/10/2022 Are you concerned about learning? Not on file 07/10/2022 No 07/10/2022 No 07/10/2022 Digital Access Answer Date Recorded No 08/05/2022 No 08/05/2022 No 08/05/2022 Reliable internet access at home? Not on file 08/05/2022 Device with a working camera? Not on file Sex and Gender Information Value Date Recorded Sex Assigned at Not on file Legal Sex Male 3:05 PM EDT Gender Identity Not on file Sexual Orientation Not on file Last Filed Vital Signs Vital Sign Reading Time Taken Comments Blood Pressure - - Pulse - - Temperature - - Respiratory Rate - - Oxygen Saturation - - Inhaled Oxygen Concentration - - Weight 213.2 kg (470 lb) 04/09/2021 2:30 PM EST Height 175.3 cm (5' 9 ) 04/09/2021 2:30 PM EST Body Mass Index 69.41 04/09/2021 2:30 PM EST Plan of Treatment Health Maintenance Due Date Last Done Comments Adult Td,Tdap Booster 1988 CREATININE LEVEL 1988 POTASSIUM LEVEL 1988 DEPRESSION SCREENING 2000 HEPATITIS C SCREENING 2006 HIV ONE-TIME SCREENING (18-6 5 YEARS) 2006 INFLUENZA VACCINE (#1) 2024 COVID-19 VACCINE (1 - 2024-2 6 season) 2024 LIPID PANEL 11/14/2025 11/14/2020 SMOKING STATUS SCREENING (On ce After 26 Yrs) Completed 04/09/2021 HEPATITIS A VACCINES Aged Out No long er eligible based on patient's age to complete this topic HIB VACCINES Aged Out No longer eligi ble based on patient's age to complete this topic MENINGOCOCCAL VACCINES (ACWY) Aged Out No longer eligible based on patient's age to complete this topic MENINGOCOCCAL VACCINES (B) Aged Out N o longer eligible based on patient's age to complete this topic PNEUMOCOCCAL VACCINES (0-49 years) Aged Out No longer eligible based on patient's age to complete this topic Medical Devices Not on file [facility] [place] [id number] A[employer] O POS EPO [facility] POS [facility] POS E[facility] [place] [place] [id number] [facility] Care Teams Automatic [employer] Cutter Relationship Specialty Start Date End Date Yaron Mathur MD [address] [place] [id number] PCP - General Unknown Provider Specialty 04/06/21 Hasmukh Espana MD [address] [place] [address] [email or web address] Primary Oncologist Medical Oncology 04/23/21 Additional Source Comments The information contained in this document represents components of the legal health record. It is not the complete legal health record.[facility]
--- NOTE | 2024-12-20 14:54 | A.OFFPC_ITS ---
Vital Signs 12/20/24 14:56 Height 5 ft 9 in Weight 476 lb 10.23 oz BMI 70.4 BP 120/66 Blood Pressure Location Lt brachial Position Sitting Pulse 80 Pulse Source Pulse Oximeter Temp 97.1 F Temp Source Temporal Artery Scan Pulse Oximetry (%) 96 Oxygen Delivery Method Room Air Intake Visit Reasons: discuss lab results Intake Note: Patient is here to follow up on Lab results. Hardware Design Engineer Required: No Graphotype Operator: Not Required per policy Accompanied by: Self / Same As Patient Allergies amlodipine Allergy (Intermediate, Verified 12/20/24 15:06) swellling of legs Medication List - Last Reconciled 12/20/24 by Gregory Burgos PA-C blood pressure monitor test blood pressure daily lisinopril-hydrochlorothiazide 10-12.5 mg 1 tab PO DAILY 90 days magnesium oxide 500 mg PO DAILY 90 days Tobacco use date assessed: 12/20/24 Dental Screening Dental Screen Date: 05/15/24 HPI discuss lab results HPI Details Patient is a 33-year-old male here today for follow-up visit. Patient has a past medical history significant for class 3 obesity, hypertension, obstructive sleep apnea and type 2 diabetes Concern---> The patient has noticed the development of skin lesions, initially presenting as red blotches that have since darkened. He suspects a possible link to lisinopril, although the distribution of the lesions suggests otherwise. He has a history of acne and has previously been treated with doxycycline, which he found effective. .. Type 2 diabetes: New onset type 2 diabetes noted with A1c recently at 6 point 8. Patient does admit to very poor eating habits recently. He has been now over the last 2 weeks on a low sugar no carb diet and feels great. He is not interested in starting any antihyperglycemic medication at this time and will like to work on dietary and lifestyle management. Discuss perhaps using a GLP 1 to help him with weight loss and he is continuing. Hypertension: Today's blood pressure in office acceptable. He reports his blood pressures has been stable with only half dose of his lisinopril. He reports from taking full-dose he did not feel well. Thus currently only taking 5 mg lisinopril at this time with a good effect on his blood pressure. Obstructive sleep apnea: He does have obstructive sleep apnea and was told he did in his CPAP machine though he has been using a recliner chair that he sleeps in which has helped him sleep much better. PFSH Surgical History Hx of tonsillectomy Family History Mother No problems noted. Father Hypertension Diabetes mellitus Social History Housing: House Alcohol intake: never Patient Tobacco Use Status: Never used Tobacco e-Cigarette/Vaping Use: Never Used Second Hand Smoke Exposure: No service: No Current occupational status: employed and disabled Cognitive needs: No Hearing needs: No Vision needs: No Questionnaire Thrive Questionnaire Date Thrive assessed: 12/18/24 I am a: Patient What is your living situation today?: I choose not to answer this question Within the past 12 months, did the food you bought not last and you didn't have the money to get more?: I choose not to answer this question Within the past 12 months, did you worry whether your food would run out before you got money to buy more?: I choose not to answer this question Do you have trouble paying for medicines?: I choose not to answer this question Do you have trouble getting transportation to medical appointments?: I choose not to answer this question Do you have trouble paying your heating and electricity bill?: I choose not to answer this question Do you have trouble taking care of your child, family member or friend?: I choose not to answer this question Do you have trouble with day-to-day activities such as bathing, preparing meals, shopping, managing finances, etc.?: I choose not to answer this question Are you currently unemployed and looking for a job?: I choose not to answer this question Are you interested in more education?: I choose not to answer this question Please select the resources that you would like help with: None Currently or been in a relationship where the following occur: I choose not to answer THRIVE Score: 0 JAMIE-7 AMB Questionnaire JAMIE-7 Date JAMIE - 7 assessed: 05/15/24 Source: Developed by Drs. Burt Middleton, Polly Ward, Johnathan Rivera and colleagues, with an educational sharda from [employer]. Review of Systems Const Denies headache(s) Eyes Denies loss of vision ENT Denies vertigo, Denies dizziness, Denies headache(s) and Denies sore throat Card Denies chest pain, Denies leg edema and Denies lightheadedness Resp Denies cough, Denies hemoptysis and Denies wheezing GI Denies abdominal pain, Denies melena, Denies constipation, Denies diarrhea and Denies vomiting Denies dysuria, Denies urinary frequency and Denies urinary urgency Musc Denies arthralgias, Denies joint swelling, Denies numbness and Denies tingling Neuro Denies Abnormal speech present, Denies behavioral changes, Denies vertigo, Denies dizziness, Denies headache(s), Denies loss of vision, Denies memory loss, Denies numbness and Denies tingling Psych Denies anxiety, Denies behavioral changes, Denies depression, Denies memory loss and Denies panic attacks Jae/Lymph Denies easy bleeding and Denies easy bruising Aller/Immun Denies wheezing Physical exam (Primary Care) Vital Signs: Last Vital Signs Temp 97.1 F 12/20/24 14:56 Pulse 80 12/20/24 14:56 BP 120/66 12/20/24 14:56 Pulse Ox 96 12/20/24 14:56 Oxygen Delivery Method Room Air 12/20/24 14:56 BMI result Body Mass Index 70.4 BMI Assessment/Plan discussion: High BMI High, discussed plan: lifestyle, weight reduction, dietary and physical activity Tobacco/Smoking Status: Tobacco use Status Tobacco use date assessed 12/20/24 12/20/24 15:01 Patient Tobacco Use Status Never used Tobacco 12/20/24 14:58 e-Cigarette/Vaping Use Never Used 12/20/24 14:58 Thrive Assessment: Date of Thrive Assessment Date Thrive assessed 12/18/24 12/20/24 14:55 Currently or been in a relationship where the following occur: I choose not to answer Const General: healthy appearing, no acute distress, alert and awake Nutritional Appearance: well nourished Orientation/consciousness: oriented to person, oriented to place and oriented to time HENMT Ears: TM's normal bilaterally General nose exam: Normal nasal mucous membranes and turbinates present Eyes Conjunctivae: conjunctivae normal Sclerae: sclerae normal Pupils: Equal, round and reactive pupils present Neck Neck: Yes no lymphadenopathy and Yes no JVD Thyroid: Thyroid normal Carotids: no bruits Resp Effort & Inspection: normal respiratory effort and not tachypneic Auscultation: no crackles, no rales, no rhonchi and no wheezes Cardio Rate: regular rate Rhythm: regular rhythm Heart sounds: no murmurs and normal S1 and S2 GI Palpation (GI): Soft to palpation, nontender, no hepatomegaly and no splenomegaly Auscultation: normal bowel sounds Skin General skin exam: no rashes or lesions noted and dry skin Neuro General: oriented to person, oriented to place and oriented to time Cranial nerves: Yes Equal, round and reactive pupils present Speech: No Abnormal speech present Gait exam (Neuro): Normal gait present Motor exam (neuro): no tremor noted Extrem Right upper extremity: full ROM Left upper extremity: full ROM Right lower extremity: full ROM; no edema Left lower extremity: full ROM; no edema Psych Mental Status: mental status grossly normal Speech and movement: Normal speech and movement present Affect: normal affect Attitude: cooperative Thought process: Normal thought process present Coding Level of Care Code Est Pt Level 4 (85531) Diagnoses Type 2 diabetes mellitus with diabetic microalbuminuria, without long-term current use of insulin E11.29; R80.9 Diabetes mellitus complication detail: with diabetic microalbuminuria Diabetes mellitus complication status: with kidney complications Diabetes mellitus longterm insulin use: without longterm use Primary hypertension I10 Hypertension type: primary hypertension Class 3 obesity E66.813 Leukocytosis, unspecified type D72.829 Leukocytosis type: unspecified Carbuncle and furuncle L02.92; L02.93 Assessment & Plan Assessment & Plan (1) DMII (diabetes mellitus, type 2): Code(s): E11.9 - Type 2 diabetes mellitus without complications Category: Medical Qualifiers: Diabetes mellitus complication detail: with diabetic microalbuminuria Diabetes mellitus complication status: with kidney complications Diabetes mellitus remote computer terminal operator insulin use: without remote computer terminal operator use Qualified Code(s): E11.29 - Type 2 diabetes mellitus with other diabetic kidney complication; R80.9 - Proteinuria, unspecified Plan: Most recent A1c is 6.8. Patient understands he is a type 2 diabetic with his A1c. He would like to work on lifestyle and dietary modifications. He is now working on a no carb low sugar diet. The plan includes evaluating the patient's metabolic function through testing for insulin resistance and testosterone levels, as these may provide insight into his difficulties with weight management (2) HTN (hypertension): Code(s): I10 - Essential (primary) hypertension Category: Medical Qualifiers: Hypertension type: primary hypertension Qualified Code(s): I10 - Essential (primary) hypertension Plan: Patient's blood pressure acceptable today in office. Will continue on half tablet of lisinopril with goal blood pressure to remain below 140/90 (3) Class 3 obesity: Code(s): E66.813 - Obesity, class 3 Category: Medical Plan: Patient does understand his BMI is over 70 and will continue working on being more physically active and adapting to better eating habits to reduce his weight. (4) Leukocytosis: Code(s): D72.829 - Elevated white blood cell count, unspecified Category: Medical Qualifiers: Leukocytosis type: unspecified Qualified Code(s): D72.829 - Elevated white blood cell count, unspecified Plan: Patient has a chronically elevated white blood cell count over the past many years. This is likely related to stress on his body in his weight. We have referred him to Hematology and he is awaiting evaluation. (5) Carbuncle and furuncle: Code(s): L02.92 - Furuncle, unspecified; L02.93 - Carbuncle, unspecified Category: Medical Plan: For the skin lesions, a course of doxycycline and the use of an antibacterial wash have been recommended to address potential acne and related skin issues. Orders: Orders Insulin 12/20/24. - Type 2 diabetes mellitus with other diabetic kidney complication, R80.9 - Proteinuria, unspecified Testosterone, Free/Total 12/20/24 E66.813 - Obesity, class 3 Complete Blood Count no Diff 12/20/24. - Type 2 diabetes mellitus with other diabetic kidney complication, R80.9 - Proteinuria, unspecified Comprehensive [place]. Panel Fast 12/20/24. - Type 2 diabetes mellitus with other diabetic kidney complication, R80.9 - Proteinuria, unspecified Medications: New doxycycline monohydrate 100 mg PO DAILY 14 caps 0RF 14 days L02.92 - Furuncle, unspecified, L02.93 - Carbuncle, unspecified chlorhexidine gluconate 4% (Antiseptic Skin Cleanser (chlorhexidine)) 1 appl topical 3XW 946 mL 0RF 4 weeks L02.92 - Furuncle, unspecified, L02.93 - Carbuncle, unspecified
[2024-12-20 14:56] VITALS: BP 120/66; PULSE 80; TEMP 36.2; O2SAT 96; BMI 70.4
== END 2024-12-20 15:39 | disposition home or self-care (01) ==
LOC: HO.HMCH 14:50
PROVIDERS: PCP Physician Assistant; Visit Provider Physician Assistant
DX: E11.29 Type 2 diabetes mellitus with other diabetic kidney complication (principal); R80.9 Proteinuria, unspecified; E66.813 Obesity, class 3; Z68.45 Body mass index [BMI] 70 or greater, adult; I10 Essential (primary) hypertension; D72.829 Elevated white blood cell count, unspecified; L02.92 Furuncle, unspecified; L02.93 Carbuncle, unspecified